=== PATIENT | male | born 1970 | race Hispanic/Latino ===

== ENCOUNTER 2024-06-08 17:26 | Emergency (ER) | payer SELFPAY ==
[~2024-06-08] VITALS: Ht 170.2 cm; Wt 99.7 kg
[2024-06-08] MEDS ORDERED: IBUPROFEN 800 MG/TAB PO ONE (18:10)
[2024-06-08] MEDS ORDERED: PAXLOVID PO (18:51)
[2024-06-08 18:54] VITALS: BP 153/102
== END 2024-06-08 18:55 | disposition home or self-care (01) | DRG 179 ==
LOC: ED 17:26
DX: U07.1 COVID-19 (principal); J02.9 Acute pharyngitis, unspecified; H92.01 Otalgia, right ear